=== PATIENT | female | born 1990 | race Caucasian/White ===

== ENCOUNTER → 2021-04-27 | Outpatient (CLI) | payer OTHER | LOC: KOH-I 10:00 | DX: R10.84 Generalized abdominal pain (principal); G56.00 Carpal tunnel syndrome, unspecified upper limb; I10 Essential (primary) hypertension; E78.5 Hyperlipidemia, unspecified; N20.0 Calculus of kidney; Z68.44 Body mass index [BMI] 60.0-69.9, adult | CPT/HCPCS: 74176 ==